=== PATIENT | female | born 1975 | race Two or more races ===

== ENCOUNTER 2024-08-20 19:16 | Inpatient (IN) | payer MEDICAID, OTHER ==
[~2024-08-20] VITALS: Ht 154.9 cm; Wt 68.2 kg
[2024-08-20] MEDS: LORazepam 0.5 MG TAB PO ONE (19:59)
[2024-08-20 20:32] LABS: Urine Bacteria None Seen /hpf (None Seen)
[2024-08-20 20:33] VITALS: PULSE 77; RESP 14; O2SAT 96
[2024-08-20 20:37] LABS: Basophils # (auto) 0 10 ^3/uL (0-0.2); Basophils % (auto) 0.3 % (0.0-2.0); Eosinophils # (auto) 0.1 10 ^3/uL (0-0.8); Eosinophils % (auto) 1.7 % (0.0-7.0); Hemoglobin 14.1 g/dL (12.2-16.2); Lymphocytes # (auto) 2.2 10 ^3/uL (0.4-5.4); Lymphocytes % (auto) 33.4 % (10.0-50.0); Mean Corpuscular Hemoglobin 31.5 pg (28.0-32.0); Mean Corpuscular Hgb Conc. 35.2 g/dL (32.0-36.0); Mean Corpuscular Volume 89.6 fL (80.0-100.0); Monocytes # (auto) 0.5 10 ^3/uL (0-1.3); Monocytes % (auto) 7.5 % (0.0-12.0); Neutrophils # (auto) 3.7 10 ^3/uL (1.6-8.6); Neutrophils % (auto) 57.1 % (37.0-80.0); Nucleated Red Blood Cells % 0.1 %; Platelet Count (auto) 241 10^3/uL (140-450); Red Blood Cells 4.46 10^6/uL (4.0-5.20); Red Cell Distribution Width 13.2 % (11.8-14.3); White Blood Cell 6.5 10^3/uL (4.4-10.8)
[2024-08-20 20:40] LABS: Chloride 106 mmol/L (98-107); Potassium 3.7 mmol/L (3.5-5.1); Sodium 139 mmol/L (136-145)
[2024-08-20 20:41] LABS: Anion Gap 9 (5-15); Carbon Dioxide 24 mmol/L (20-31)
[2024-08-20 20:42] LABS: Calcium 9.8 mg/dL (8.7-10.4)
[2024-08-20 20:46] LABS: BUN/Creatinine Ratio 18.2 (10.0-20.0); Blood Urea Nitrogen 16 mg/dL (9-23); Glucose 103 mg/dL (74-106)
[2024-08-20 21:10] LABS: Urine Blood Negative /uL (Negative); Urine Clarity Clear (Clear); Urine Color Colorless (Yellow); Urine Protein, UAD Negative (Negative); Urine Specific Gravity 1.004 (1.001-1.035); Urine Urobilinogen Normal (Negative); Urine WBC <1 /hpf (0 - 5)
[2024-08-20] MEDS ORDERED: MORPHINE SULFATE INJ 2 MG/ml SYRG IV PRN (22:45)
[2024-08-20] MEDS ORDERED: hydrALAZINE HCL 20 MG/ML VL IV PRN (22:45)
[2024-08-20] MEDS ORDERED: ACETAMINOPHEN 500 MG TAB PO PRN (22:45)
[2024-08-20] MEDS: LOSARTAN POTASSIUM 25 MG TAB PO ONE (22:45)
[2024-08-20 23:15] LABS: INR 0.97 (0.9-1.15); Partial Thromboplastin Time 28.8 SEC (24.5-34.5); Prothrombin Time 10.3 sec (9.3-11.8)
[2024-08-20 23:36] LABS: Albumin 4.5 g/dL (3.2-4.8); Bilirubin, Direct 0.3 mg/dL (<0.3); Bilirubin, Total 1.1 mg/dL (0.2-1.0); Total Protein 7.3 g/dL (5.7-8.2)
[2024-08-20] MEDS: LEVOTHYROXINE SODIUM 25 MCG TAB PO ONE (23:42)
[2024-08-20 23:53] LABS: Uric Acid 4.7 mg/dL (3.1-7.8)
[2024-08-20] MEDS: POTASSIUM EFFERVESENT TAB 25 MEQ PO ONE (23:56)
[2024-08-21] MEDS ORDERED: ONDANSETRON HCL 4 MG/2 ML VIAL IV PRN (00:15)
[2024-08-21 05:35] LABS: COVID19 ANTIGEN SOFIA FIA NEGATIVE (NEGATIVE)
[2024-08-21] MEDS: LEVOTHYROXINE SODIUM 25 MCG TAB PO SCH (05:44)
[2024-08-21 06:47] LABS: Amphetamine Screen, Urine Neg (NEGATIVE); Barbiturate Scree,Urine Neg (NEGATIVE); Benzodiazephine Screen, Urine Neg (NEGATIVE); Cocaine Screen, Urine Neg (NEGATIVE); Opiate Scree,Urine Neg (NEGATIVE)
[2024-08-21 06:48] LABS: Cannabinoid Screen, Urine Neg (NEGATIVE); Phencyclidine Screen, Urine Neg (NEGATIVE)
[2024-08-21 07:29] LABS: Basophils # (auto) 0 10 ^3/uL (0-0.2); Basophils % (auto) 0.2 % (0.0-2.0); Eosinophils # (auto) 0.2 10 ^3/uL (0-0.8); Eosinophils % (auto) 3.4 % (0.0-7.0); Hematocrit 38.8 % (36.0-46.0); Hemoglobin 13.8 g/dL (12.2-16.2); Lymphocytes # (auto) 2.2 10 ^3/uL (0.4-5.4); Mean Corpuscular Hemoglobin 31.4 pg (28.0-32.0); Mean Corpuscular Hgb Conc. 35.7 g/dL (32.0-36.0); Mean Corpuscular Volume 88.1 fL (80.0-100.0); Monocytes # (auto) 0.4 10 ^3/uL (0-1.3); Monocytes % (auto) 7.9 % (0.0-12.0); Neutrophils # (auto) 2.5 10 ^3/uL (1.6-8.6); Neutrophils % (auto) 46.5 % (37.0-80.0); Nucleated Red Blood Cells % 0.1 %; Platelet Count (auto) 241 10^3/uL (140-450); Red Blood Cells 4.41 10^6/uL (4.0-5.20); Red Cell Distribution Width 13.3 % (11.8-14.3); White Blood Cell 5.3 10^3/uL (4.4-10.8)
[2024-08-21 07:31] LABS: Chloride 106 mmol/L (98-107); Potassium 3.8 mmol/L (3.5-5.1); Sodium 138 mmol/L (136-145)
[2024-08-21 07:32] LABS: Anion Gap 8 (5-15); Calcium 9.8 mg/dL (8.7-10.4); Carbon Dioxide 24 mmol/L (20-31)
[2024-08-21 07:37] LABS: BUN/Creatinine Ratio 13.6 (10.0-20.0); Blood Urea Nitrogen 12 mg/dL (9-23); Glucose 108 mg/dL (74-106); Triglycerides 161 mg/dL (< 150)
[2024-08-21 07:38] LABS: LDL Cholesterol 125 mg/dL (< 100)
[2024-08-21 07:39] LABS: Cholesterol 195 mg/dL (< 200); HDL Cholesterol 45 mg/dL (40-59)
[2024-08-21 08:00] VITALS: PULSE 79; RESP 16; O2SAT 97
[2024-08-21 08:47] LABS: Albumin 4.4 g/dL (3.2-4.8); Bilirubin, Direct 0.3 mg/dL (<0.3); Bilirubin, Total 1.2 mg/dL (0.2-1.0); Total Protein 7.2 g/dL (5.7-8.2)
[2024-08-21] MEDS: CHLORTHALIDONE 25 MG TAB PO SCH (09:18)
[2024-08-21] MEDS ORDERED: LOSARTAN POTASSIUM 25 MG TAB PO SCH (10:00)
[2024-08-21] MEDS: ENOXAPARIN SOD 40 MG/0.4 ML SYRINGE SC SCH (10:54)
[2024-08-21] MEDS: LOSARTAN POTASSIUM 25 MG TAB PO SCH ×2 (11:01→21:34)
[2024-08-21 11:36] LABS: Free T4 (Free Thyroxine) 1.35 ng/dL (0.89-1.76)
[2024-08-21] MEDS: NIFEdipine ER 30 MG TAB PO SCH (13:40)
[2024-08-21 13:57] LABS: Free T3 2.96 pg/mL (2.3-4.2)
[2024-08-21] MEDS: CHLORTHALIDONE 25 MG TAB PO ONE (17:00)
[2024-08-21 20:30] VITALS: BP 126/84; PULSE 109; RESP 18; TEMP 98.4; O2SAT 95
[2024-08-21] MEDS ORDERED: LEVO50TA7 PO (20:50)
[2024-08-21] MEDS ORDERED: LOSA-534 PO (20:50)
[2024-08-21] MEDS: ATORVASTATIN 20 MG TAB PO SCH (21:34)
[2024-08-22 01:00] VITALS: BP 93/57; PULSE 81; RESP 20; TEMP 98.5; O2SAT 97
[2024-08-22 05:00] VITALS: BP 90/49; PULSE 90; RESP 18; TEMP 97.9; O2SAT 94
[2024-08-22 06:24] LABS: Alanine Aminotransferase 79 U/L (7-40); Alkaline Phosphatase 139 U/L (46-116); Anion Gap 11 (5-15); BUN/Creatinine Ratio 11.7 (10.0-20.0); Blood Urea Nitrogen 19 mg/dL (9-23); Calcium 10.4 mg/dL (8.7-10.4); Carbon Dioxide 22 mmol/L (20-31); Chloride 99 mmol/L (98-107); Glucose 126 mg/dL (74-106)
[2024-08-22 06:25] LABS: Albumin 4.9 g/dL (3.2-4.8); Aspartate Aminotransferase 33 U/L (13-40); Total Protein 7.7 g/dL (5.7-8.2)
[2024-08-22 06:29] LABS: Sodium 132 mmol/L (136-145)
[2024-08-22] MEDS: SODIUM CHLORIDE 0.9% 1,000 ML IV SCH (07:15)
[2024-08-22] MEDS: CHLORTHALIDONE 25 MG TAB PO SCH (08:00)
[2024-08-22 09:00] VITALS: BP 98/51; PULSE 85; RESP 16; TEMP 98.5; O2SAT 95
[2024-08-22 13:00] VITALS: BP 97/59; PULSE 85; RESP 18; TEMP 98.8; O2SAT 97
[2024-08-22 17:00] VITALS: BP 112/73; PULSE 82; RESP 16; TEMP 97.7; O2SAT 95
[2024-08-22 21:00] VITALS: BP 111/70; PULSE 71; RESP 17; TEMP 98; O2SAT 96
[2024-08-23 01:00] VITALS: BP 97/59; PULSE 80; RESP 16; TEMP 98.5; O2SAT 95
[2024-08-23 04:58] VITALS: BP 101/64; PULSE 78; RESP 15; TEMP 98.3; O2SAT 95
[2024-08-23 06:16] LABS: Chloride 105 mmol/L (98-107); Potassium 3.5 mmol/L (3.5-5.1); Sodium 137 mmol/L (136-145)
[2024-08-23 06:17] LABS: Anion Gap 7 (5-15); Calcium 9.4 mg/dL (8.7-10.4); Carbon Dioxide 25 mmol/L (20-31)
[2024-08-23 06:22] LABS: BUN/Creatinine Ratio 17.7 (10.0-20.0); Blood Urea Nitrogen 17 mg/dL (9-23); Glucose 101 mg/dL (74-106)
[2024-08-23] MEDS ORDERED: NIFE1TAB31 PO (06:51)
[2024-08-23] MEDS ORDERED: ATOR20TA50 PO (06:51)
[2024-08-23 08:00] VITALS: PULSE 80; RESP 18; O2SAT 98
[2024-08-23] MEDS: POTASSIUM EFFERVESENT TAB 25 MEQ PO ONE (08:37)
[2024-08-23 09:00] VITALS: BP 114/77; PULSE 74; RESP 22; TEMP 98.3; O2SAT 98
[2024-08-23 12:39] VITALS: BP 126/84; PULSE 74; TEMP 36.8; O2SAT 96
[2024-08-23 13:00] VITALS: BP 133/86; PULSE 77; RESP 22; TEMP 98; O2SAT 91
[2024-08-24 08:45] LABS: Hepatitis B Surface Antigen Negative (Negative)
[2024-08-24 09:06] LABS: Hepatitis C Antibody Negative (Negative)
== END 2024-08-23 14:25 | disposition home or self-care (01) | DRG 304 ==
LOC: ER 19:16 → EDBD 19:16 → TELE 23:13 → OVERFLOW 23:25 → CENTRAL 08-21 20:28
PROVIDERS: ADMIT Internal Medicine; ATTEND Internal Medicine
DX: I16.1 Hypertensive emergency (principal); N17.0 Acute kidney failure with tubular necrosis; I67.4 Hypertensive encephalopathy; E03.9 Hypothyroidism, unspecified; E66.3 Overweight; E78.5 Hyperlipidemia, unspecified; K76.0 Fatty (change of) liver, not elsewhere classified; Z20.822 Contact with and (suspected) exposure to COVID-19; I70.1 Atherosclerosis of renal artery; Z90.49 Acquired absence of other specified parts of digestive tract; Z68.28 Body mass index [BMI] 28.0-28.9, adult
CPT/HCPCS: 36415; 70450; 70551; 71045; 76705; 80048; 80053; 80061; 80076; 80307; 81001; 82306; 82607; 83036; 83735; 83835; 83880; 84439; 84443; 84481; 84484; 84550; 84702; 85025; 85610; 85730; 86803; 87340; 87426; 93005; 93306; 93975; 99291; G0378